=== PATIENT | male | born 1945 | race Caucasian/White ===

== ENCOUNTER 2018-12-29 15:48 | Emergency (ER) | payer MEDICARE ==
[~2018-12-29] VITALS: Ht 188 cm; Wt 127.0 kg
[2018-12-29] MEDS ORDERED: SODIUM CHLORIDE 0.9% 1000ML 1,000 ML IV STA (16:06)
[2018-12-29] MEDS ORDERED: ONDANSETRON HCL INJ 2MG/ML 2ML 2 MG/ML VIAL IV ONE (16:15)
[2018-12-29] MEDS ORDERED: FAMOTIDINE 20 MG/2 ML VIAL IV ONE (16:15)
[2018-12-29] MEDS ORDERED: MORPHINE SULFATE INJ 4 MG/ML INJ 1ML IV STA (16:20)
--- NOTE | 2018-12-29 17:25 | Diagnostic Imaging Report ---
EXAM: CT of the abdomen and pelvis WITH contrast HISTORY: Fever, abdominal pain, vomiting COMPARISON: None available. TECHNIQUE: The abdomen and pelvis were scanned utilizing a multidetector helical scanner. Coronal and sagittal reformats are provided. PROTOCOL: Routine IV CONTRAST: 100 cc of Isovue-370. ORAL CONTRAST: None, which limits sensitivity and specificity of the exam. RADIATION DOSE: Total DLP: 778.23 mGy*cm Estimated effective dose: (DLP x 0.015 x size factor) Dose modulation, iterative reconstruction, and/or weight based adjustment of the mA/kV was utilized to reduce the radiation dose to as low as reasonably achievable. COMPLICATIONS: None FINDINGS: LOWER THORAX: Unremarkable. HEPATOBILIARY: No mass. No biliary dilation. No calcified gallstone. SPLEEN: No splenomegaly. PANCREAS: No focal masses or ductal dilatation. ADRENALS: No discrete adrenal nodule. KIDNEYS/URETERS: No hydronephrosis, stones, or definite solid mass lesions. PELVIC ORGANS/BLADDER: The visualized pelvic organs appear unremarkable. GI TRACT: No dilation or wall thickening identified. The appendix is normal. Prominent distal descending and sigmoid diverticulosis, without specific evidence of acute diverticulitis. PERITONEUM / RETROPERITONEUM: No free air or fluid. Subtle left mesenteric fat stranding. LYMPH NODES: No pathologically enlarged lymph node. Small nonspecific mesenteric lymph nodes, most notably the left hemiabdomen. VESSELS: Diffuse scattered atherosclerotic vascular calcifications. BONES: No aggressive osseous lesion or acute fracture. SOFT TISSUES: Unremarkable. IMPRESSION: 1. Subtle left mesenteric stranding and small nonspecific lymph nodes, this may reflect the sequela of an evolving infectious or inflammatory process. 2. Diverticulosis. Signed by: Dr. Sean Garcia D.O., M.M.M. on 12/29/2018 5:21 PM
[2018-12-29 17:35] VITALS: BP 159/79
== END 2018-12-29 17:59 | disposition home or self-care (01) ==
LOC: FSED 15:48
DX: R10.84 Generalized abdominal pain (principal); R11.0 Nausea; A08.4 Viral intestinal infection, unspecified
CPT/HCPCS: 74177; 80048; 80076; 81003; 85025; 87400; 99284; J2270; J2405; J7030